=== PATIENT | female | born 1985 | race Hispanic/Latino ===

== ENCOUNTER 2016-10-03 18:00 | Emergency (ER) | payer OTHER ==
[~2016-10-03] VITALS: Ht 162.6 cm; Wt 83.6 kg
[~2016-10-03 18:00] MED LIST: HYDR-4003 PO; POLY17PO6 PO
[2016-10-03 18:43] VITALS: BP 113/76; PULSE 76; RESP 14; O2SAT 99
== END 2016-10-03 21:03 | disposition left against medical advice (07) ==
LOC: SED 18:00
DX: S93.402A Sprain of unspecified ligament of left ankle, initial encounter (principal); Z53.21 Procedure and treatment not carried out due to patient leaving prior to being seen by health care provider